=== PATIENT | female | born 1990 | race Two or more races ===

== ENCOUNTER → 2024-03-17 | Outpatient (CLI) | payer MEDICAID, SELFPAY ==
--- NOTE | 2024-03-17 09:00 | XR_ITS ---
Examination: Hand, right 3 views Technique: Hand AP, oblique, lateral 3 views Date and time of exam: March 17, 2024 0906 hours INDICATIONS: Injury to the hand 6 days ago with fourth digit pain FINDINGS: Prominent osteopenia Acute fracture at the base of the distal phalanx fourth digit without significant displacement No dislocation IMPRESSION: Nondisplaced fracture distal phalanx fourth digit
== END | disposition home or self-care (01) ==
PROVIDERS: PCP Physician Assistant; Referring Provider Obstetrics & Gynecology; Visit Provider Obstetrics & Gynecology
DX: S62.660A Nondisplaced fracture of distal phalanx of right index finger, initial encounter for closed fracture (principal); X58.XXXA Exposure to other specified factors, initial encounter
CPT/HCPCS: 73130

== ENCOUNTER → 2024-04-13 | Outpatient (CLI) | payer MEDICAID, SELFPAY ==
--- NOTE | 2024-04-13 | XR_ITS ---
Examination: Hand, right 3 views Technique: Hand AP, oblique, lateral 3 views Date and time of exam: April 13, 2024 1123 hours INDICATIONS: History fracture distal phalanx fourth digit Examination March 17, 2024 FINDINGS: Healing fracture at the base of the distal phalanx fourth digit Stable alignment IMPRESSION: Healing fracture base of the distal phalanx fourth digit with stable alignment
== END | disposition home or self-care (01) ==
LOC: CDIM 10:38
PROVIDERS: PCP Physician Assistant; Referring Provider Obstetrics & Gynecology; Visit Provider Obstetrics & Gynecology
DX: S62.634A Displaced fracture of distal phalanx of right ring finger, initial encounter for closed fracture (principal); X58.XXXA Exposure to other specified factors, initial encounter
CPT/HCPCS: 73130